=== PATIENT | female | born 2000 | race American Indian/Alaskan Native ===

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

== ENCOUNTER 2020-12-12 10:23 | Emergency (ER) | payer SELFPAY ==
[2020-12-12 11:29] VITALS: BP 112/58
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
[2020-12-12 12:20] LABS: Basophils % (Auto) 0.2 % (0.0-1.8); Eosinophils % (Auto) 0.3 % (0.0-4.3); Hemoglobin 12.3 gm/dl (10.1-14.3); Lymphocytes # (Auto) 2.1 K/mm3 (1.2-5.4); Lymphocytes % (Auto) 27.4 % (13.4-35.0); Mean Corpuscular HGB Conc 35 % (30-34); Mean Corpuscular Volume 93 fl (79-97); Monocytes # (Auto) 0.4 K/mm3 (0.0-0.8); Monocytes % (Auto) 5.9 % (0.0-7.3); Platelet Count 267 K/mm3 (140-440); Red Blood Count 3.77 M/mm3 (3.65-5.03); Red Cell Distribution Width 13.7 % (13.2-15.2)
[2020-12-12 12:37] LABS: Albumin 4.4 g/dL (3.9-5); Blood Urea Nitrogen 5 mg/dL (7-17); Calcium 9.2 mg/dL (8.4-10.2); Hemolysis Index 1
[2020-12-12 12:39] LABS: Alanine Aminotransferase < 5 units/L (7-56); BUN/Creatinine Ratio 13
[2020-12-12 14:00] LABS: Bilirubin,Urine NEG (Negative); Blood,Urine SM (Negative); Color,Urine Yellow (Yellow); Mucus,Urine FEW /HPF
--- NOTE | 2020-12-12 14:26 | Ultrasound Report ---
ULTRASOUND OBSTETRIC INDICATION / CLINICAL INFORMATION: Vaginal bleeding, and cramping with . Clinical Gestational Age (GA) in weeks, days: 6 weeks 6 days TECHNIQUE: Transabdominal and Transvaginal. COMPARISON: None available. FINDINGS: GESTATIONAL SAC: Well-defined oval shape and intrauterine in location. YOLK SAC: No significant abnormality. EMBRYO/FETUS: No significant abnormality. - [place]-Rump Length = 0.7 cm = 6, 4 weeks, days - Heart Rate, beats per minute (if present) = 123 ADNEXA: Complex appearing lesion within the right ovary measuring 3.1 cm, could reflect a corpus lute al cyst. Right ovary is otherwise normal in morphology with normal vascular flow. Left ovary is nitesh l. FREE FLUID: None. ADDITIONAL FINDINGS: Questionable small subchorionic hemorrhage measuring less than 1 cm. IMPRESSION: 1. Single, living intrauterine with estimated sonographic age of 6 weeks, 4 days. 2. Questionable subcentimeter subchorionic hematoma. Recommend continued sonographic and obstetric fo llow-up as clinically indicated. Signer Name: Dawson Mukherjee MD Signed: 12/12/2020 2:21 PM Workstation Name: [id number]
--- NOTE | 2020-12-12 14:26 | Ultrasound Report ---
ULTRASOUND OBSTETRIC INDICATION / CLINICAL INFORMATION: Vaginal bleeding, and cramping with . Clinical Gestational Age (GA) in weeks, days: 6 weeks 6 days TECHNIQUE: Transabdominal and Transvaginal. COMPARISON: None available. FINDINGS: GESTATIONAL SAC: Well-defined oval shape and intrauterine in location. YOLK SAC: No significant abnormality. EMBRYO/FETUS: No significant abnormality. - [place]-Rump Length = 0.7 cm = 6, 4 weeks, days - Heart Rate, beats per minute (if present) = 123 ADNEXA: Complex appearing lesion within the right ovary measuring 3.1 cm, could reflect a corpus lute al cyst. Right ovary is otherwise normal in morphology with normal vascular flow. Left ovary is nitesh l. FREE FLUID: None. ADDITIONAL FINDINGS: Questionable small subchorionic hemorrhage measuring less than 1 cm. IMPRESSION: 1. Single, living intrauterine with estimated sonographic age of 6 weeks, 4 days. 2. Questionable subcentimeter subchorionic hematoma. Recommend continued sonographic and obstetric fo llow-up as clinically indicated. Signer Name: Dawson Mukherjee MD Signed: 12/12/2020 2:21 PM Workstation Name: [id number]
== END 2020-12-12 15:20 | disposition home or self-care (01) ==
LOC: ED 10:23
DX: O20.8 Other hemorrhage in early pregnancy (principal); O21.0 Mild hyperemesis gravidarum; Z3A.01 Less than 8 weeks gestation of pregnancy
CPT/HCPCS: 36415; 76801; 76817; 80053; 81001; 84702; 85025; 86900; 86901; 99284